=== PATIENT | male | born 1940 | race Caucasian/White ===

== ENCOUNTER 2022-10-10 16:31 | Inpatient (IN) | payer MEDICARE, MEDICAID ==
[2022-10-10] MEDS ORDERED: HYDROmorphone 1 MG/ML Syringe IVPUSH STA (17:45)
[2022-10-10] MEDS ORDERED: Ondansetron 4 MG/2 ML SDV IVPUSH ONE (17:45)
[2022-10-10] MEDS ORDERED: Lidocaine 1% 2 ML ONE (18:48)
[2022-10-10] MEDS ORDERED: Iopamidol 612 MG/ML 100 ML Bottle IVPUSH ONE (18:53)
[2022-10-10] MEDS ORDERED: Sodium Chloride 0.9% 10 ML SDV FLUSH ONE (18:53)
[2022-10-10 19:03] LABS: ESTIMATED GFR 86 mL/min (>60)
[2022-10-10] MEDS ORDERED: Metoclopramide 10 MG/2 ML SDV IVPUSH STA (19:51)
[2022-10-10] MEDS: Sodium Chloride 0.9% 1,000 ML IV SCH (20:03)
[2022-10-10] MEDS ORDERED: Ondansetron 4 MG/2 ML SDV ONE ×2 (21:29→21:51)
[2022-10-10] MEDS ORDERED: Ondansetron 8 MG in Sodium Chloride 0.9% 50 ML IV ONE (21:33)
[2022-10-11] MEDS ORDERED: Ondansetron 4 MG/2 ML SDV IVPUSH PRN (00:38)
[2022-10-11] MEDS: Morphine 2 MG/ML SYRINGE IVPUSH PRN (04:46)
[2022-10-11] MEDS: Sodium Chloride 0.9% 1,000 ML IV SCH ×2 (04:46→15:53)
[2022-10-11] MEDS ORDERED: Calcium Carbonate 500 MG Tab.Chew PO PRN ×2 (06:45→09:45)
[2022-10-11] MEDS ORDERED: Levothyroxine 100 MCG Tab PO SCH (07:00)
[2022-10-11] MEDS ORDERED: Divalproex Sodium Delayed-Release 125 MG Cap.Sprink PO SCH (09:00)
[2022-10-11] MEDS ORDERED: Folic Acid 1 MG Tab PO SCH (09:00)
[2022-10-11] MEDS ORDERED: Divalproex Sodium Delayed-Release 500 MG Tab.CR PO SCH (09:12)
[2022-10-11] MEDS: Furosemide 20 MG Tab PO SCH (09:34)
[2022-10-11] MEDS: Bisacodyl 5 MG Tab PO SCH (09:34)
[2022-10-11] MEDS: Divalproex Sodium Delayed-Release 500 MG Tab.CR PO SCH ×2 (09:34→20:16)
[2022-10-11] MEDS: Famotidine 20 MG Tab PO SCH ×2 (09:35→20:15)
[2022-10-11] MEDS: Potassium Chloride 20 MEQ Tab.ER PO SCH ×3 (09:35→20:16)
[2022-10-11] MEDS: Folic Acid 1 MG Tab PO SCH (09:35)
[2022-10-11] MEDS: Mirtazapine 15 MG Tab PO SCH (09:35)
[2022-10-11] MEDS: Heparin Sodium 5,000 Units/ML Vial SUBCUT SCH ×2 (15:24→21:13)
[2022-10-12] MEDS: Sodium Chloride 0.9% 1,000 ML IV SCH ×2 (00:01→14:15)
[2022-10-12] MEDS: Morphine 2 MG/ML SYRINGE IVPUSH PRN ×2 (00:01→04:15)
[2022-10-12] MEDS: Heparin Sodium 5,000 Units/ML Vial SUBCUT SCH ×3 (06:14→21:00)
[2022-10-12] MEDS: Levothyroxine 50 MCG Tab PO SCH (06:14)
[2022-10-12] MEDS: Bisacodyl 5 MG Tab PO SCH (08:32)
[2022-10-12] MEDS: Furosemide 20 MG Tab PO SCH (08:33)
[2022-10-12] MEDS: Folic Acid 1 MG Tab PO SCH (08:33)
[2022-10-12] MEDS: Famotidine 20 MG Tab PO SCH ×2 (08:33→20:57)
[2022-10-12] MEDS: Potassium Chloride 20 MEQ Tab.ER PO SCH ×3 (08:33→20:57)
[2022-10-12] MEDS: Mirtazapine 15 MG Tab PO SCH (08:33)
[2022-10-12] MEDS: Divalproex Sodium Delayed-Release 500 MG Tab.CR PO SCH ×2 (08:33→20:57)
[2022-10-12] MEDS ORDERED: Folic Acid 1 MG Tab PO SCH (09:00)
[2022-10-13] MEDS: Sodium Chloride 0.9% 1,000 ML IV SCH (02:41)
[2022-10-13] MEDS: Levothyroxine 50 MCG Tab PO SCH (06:34)
[2022-10-13] MEDS: Heparin Sodium 5,000 Units/ML Vial SUBCUT SCH ×3 (06:34→22:10)
[2022-10-13] MEDS: Mirtazapine 15 MG Tab PO SCH (09:09)
[2022-10-13] MEDS: Potassium Chloride 20 MEQ Tab.ER PO SCH ×3 (09:09→20:10)
[2022-10-13] MEDS: Divalproex Sodium Delayed-Release 500 MG Tab.CR PO SCH ×2 (09:09→20:09)
[2022-10-13] MEDS: Bisacodyl 5 MG Tab PO SCH (09:09)
[2022-10-13] MEDS: Furosemide 20 MG Tab PO SCH (09:09)
[2022-10-13] MEDS: Famotidine 20 MG Tab PO SCH ×2 (09:10→20:09)
[2022-10-13] MEDS: Folic Acid 1 MG Tab PO SCH (09:10)
[2022-10-13] MEDS ORDERED: Sodium Chloride 0.9% 1,000 ML IV SCH (10:30)
[2022-10-13] MEDS: Potassium Chloride 10 MEQ in Premix Bag 1 BAG IV SCH ×3 (11:26→14:50)
[2022-10-13] MEDS ORDERED: Magnesium Sulfate/Water 2 GM in Premix Bag 1 BAG IV ONE (14:00)
[2022-10-13] MEDS ORDERED: Potassium Chloride 20 MEQ Tab.ER PO ONE (14:30)
[2022-10-13] MEDS ORDERED: Potassium Phosphates 30 MMOLE in Sodium Chloride 0.9% 500 ML IV SCH (16:00)
[2022-10-13] MEDS ORDERED: Potassium Chloride 20 MEQ Tab.ER PO SCH (21:00)
[2022-10-14] MEDS: Heparin Sodium 5,000 Units/ML Vial SUBCUT SCH ×3 (06:06→21:08)
[2022-10-14] MEDS ORDERED: Levothyroxine 100 MCG Tab PO SCH (07:00)
[2022-10-14] MEDS ORDERED: Potassium Chloride 20 MEQ Tab.ER PO SCH (09:00)
[2022-10-14] MEDS ORDERED: Lactated Ringers 1,000 ML IV SCH (09:00)
[2022-10-14] MEDS ORDERED: Magnesium Sulfate/Water 2 GM in Premix Bag 1 BAG IV ONE (09:00)
[2022-10-14] MEDS: Potassium Chloride 10 MEQ in Premix Bag 1 BAG IV SCH ×6 (09:09→15:57)
[2022-10-14] MEDS: Folic Acid 1 MG Tab PO SCH (09:17)
[2022-10-14] MEDS: Furosemide 20 MG Tab PO SCH (09:17)
[2022-10-14] MEDS: Bisacodyl 5 MG Tab PO SCH (09:17)
[2022-10-14] MEDS: Mirtazapine 15 MG Tab PO SCH (09:17)
[2022-10-14] MEDS: Famotidine 20 MG Tab PO SCH (09:18)
[2022-10-14] MEDS: Divalproex Sodium Delayed-Release 500 MG Tab.CR PO SCH ×2 (09:39→21:07)
[2022-10-14] MEDS ORDERED: Lidocaine 2% Viscous Solution 15 ML UD PO PRN (10:58)
[2022-10-14] MEDS ORDERED: Lidocaine 2% Viscous Solution 15 ML UD PO SCH (11:00)
[2022-10-14] MEDS ORDERED: Benzocaine 20% Topical Spray UD MUCMEM PRN (12:08)
[2022-10-14] MEDS ORDERED: Pantoprazole 40 MG Vial IVPUSH ONE (12:30)
[2022-10-14] MEDS ORDERED: Potassium Phosphates 30 MMOLE in Sodium Chloride 0.9% 500 ML IV ONE (15:30)
[2022-10-14] MEDS: D5 1/2 NS w/ 20 mEq/L KCl 1,000 ML IV SCH (15:52)
[2022-10-14] MEDS: Pantoprazole 40 MG Vial IVPUSH SCH (21:07)
[2022-10-15] MEDS: Heparin Sodium 5,000 Units/ML Vial SUBCUT SCH ×3 (07:03→23:53)
[2022-10-15] MEDS: Mirtazapine 15 MG Tab PO SCH (08:47)
[2022-10-15] MEDS: Divalproex Sodium Delayed-Release 500 MG Tab.CR PO SCH (08:47)
[2022-10-15] MEDS: Pantoprazole 40 MG Vial IVPUSH SCH ×2 (08:47→20:41)
[2022-10-15] MEDS: D5 1/2 NS w/ 20 mEq/L KCl 1,000 ML IV SCH (08:48)
[2022-10-15] MEDS: Morphine 2 MG/ML SYRINGE IVPUSH PRN ×2 (08:53→11:39)
[2022-10-15] MEDS: Potassium Chloride 10 MEQ in Premix Bag 1 BAG IV SCH ×8 (10:48→23:54)
[2022-10-15] MEDS: Scopolamine 1.5 MG Transdermal Patch TRDERM SCH (12:06)
[2022-10-15] MEDS ORDERED: Albuterol 0.083% 2.5 MG/3 ML Neb Soln NEB PRN (15:53)
[2022-10-15] MEDS ORDERED: Potassium Phosphates 30 MMOLE in Sodium Chloride 0.9% 500 ML IV ONE ×2 (16:00→18:00)
[2022-10-15] MEDS: Albuterol 0.083% 2.5 MG/3 ML Neb Soln NEB SCH ×2 (16:15→21:09)
[2022-10-15] MEDS: Cefepime 2 GM in Sodium Chloride 0.9% 50 ML IV SCH (16:31)
[2022-10-15] MEDS: Levofloxacin/Dextrose 5%-Water 750 MG in Premix Bag 1 BAG IV SCH (16:32)
[2022-10-15] MEDS ORDERED: Furosemide 20 MG/2 ML VIAL IVPUSH ONE (17:17)
[2022-10-16] MEDS: Cefepime 2 GM in Sodium Chloride 0.9% 50 ML IV SCH ×3 (01:17→17:16)
[2022-10-16] MEDS: D5 1/2 NS w/ 20 mEq/L KCl 1,000 ML IV SCH (01:18)
[2022-10-16] MEDS: Albuterol 0.083% 2.5 MG/3 ML Neb Soln NEB SCH ×4 (06:33→20:12)
[2022-10-16] MEDS: Heparin Sodium 5,000 Units/ML Vial SUBCUT SCH ×3 (07:01→21:45)
[2022-10-16] MEDS: Pantoprazole 40 MG Vial IVPUSH SCH ×2 (08:15→20:38)
[2022-10-16] MEDS ORDERED: Furosemide 20 MG/2 ML VIAL IVPUSH ONE (10:15)
[2022-10-16] MEDS ORDERED: Magnesium Sulfate/Water 50 ML IV ONE (10:30)
[2022-10-16] MEDS: Morphine 2 MG/ML SYRINGE IVPUSH PRN (10:46)
[2022-10-16] MEDS: Potassium Chloride 10 MEQ in Premix Bag 1 BAG IV SCH ×4 (10:50→17:27)
[2022-10-16] MEDS ORDERED: Magnesium Sulfate (4.06 MEQ/ML) 5 GM/10 ML SDV IV ONE (11:00)
[2022-10-16] MEDS ORDERED: Potassium Phosphates 30 MMOLE in Sodium Chloride 0.9% 500 ML IV ONE (15:00)
[2022-10-16] MEDS: Levofloxacin/Dextrose 5%-Water 750 MG in Premix Bag 1 BAG IV SCH (15:59)
[2022-10-16] MEDS ORDERED: Potassium Chloride 10 MEQ in Premix Bag 1 BAG IV SCH (17:15)
[2022-10-17] MEDS: Cefepime 2 GM in Sodium Chloride 0.9% 50 ML IV SCH ×2 (02:21→08:14)
[2022-10-17] MEDS: D5 1/2 NS w/ 20 mEq/L KCl 1,000 ML IV SCH (02:23)
[2022-10-17] MEDS: Morphine 2 MG/ML SYRINGE IVPUSH PRN (02:24)
[2022-10-17] MEDS: Heparin Sodium 5,000 Units/ML Vial SUBCUT SCH ×2 (06:09→15:37)
[2022-10-17] MEDS: Albuterol 0.083% 2.5 MG/3 ML Neb Soln NEB SCH ×4 (06:27→20:47)
[2022-10-17] MEDS: Pantoprazole 40 MG Vial IVPUSH SCH (08:11)
[2022-10-17] MEDS: Potassium Chloride 10 MEQ in Premix Bag 1 BAG IV SCH ×4 (09:09→14:19)
[2022-10-17] MEDS ORDERED: Potassium Phosphates 30 MMOLE in Sodium Chloride 0.9% 500 ML IV ONE (13:00)
[2022-10-17] MEDS: Glycopyrrolate 0.2 MG/ML SDV IVPUSH PRN (15:45)
[2022-10-17] MEDS: LORazepam 2 MG/ML SDV IVPUSH PRN (15:49)
[2022-10-18] MEDS: Glycopyrrolate 0.2 MG/ML SDV IVPUSH PRN ×2 (03:36→20:23)
[2022-10-18] MEDS: Albuterol 0.083% 2.5 MG/3 ML Neb Soln NEB SCH ×2 (05:45→09:27)
[2022-10-18] MEDS: LORazepam 2 MG/ML SDV IVPUSH PRN (10:26)
[2022-10-18] MEDS: Morphine 2 MG/ML SYRINGE IVPUSH PRN (10:27)
[2022-10-18] MEDS: Scopolamine 1.5 MG Transdermal Patch TRDERM SCH (12:20)
[2022-10-18] MEDS: Morphine 4 MG/ML Syringe IVPUSH PRN (20:22)
[2022-10-19] MEDS: Morphine 4 MG/ML Syringe IVPUSH PRN ×4 (00:12→07:27)
[2022-10-19] MEDS: Glycopyrrolate 0.2 MG/ML SDV IVPUSH PRN (02:52)
[2022-10-19] MEDS: LORazepam 2 MG/ML SDV IVPUSH PRN (05:36)
== END 2022-10-19 11:44 | disposition expired | DRG 388 ==
LOC: JD.ED 16:31 → JD.MS 22:30
PROVIDERS: ADMIT Internal Medicine; ATTEND Internal Medicine
PROC: 05HY33Z Insertion of Infusion Device into Upper Vein, Percutaneous Approach (ICD-10-PCS; 2022-10-10)
PROC: 0DH67UZ Insertion of Feeding Device into Stomach, Via Natural or Artificial Opening (ICD-10-PCS; principal; 2022-10-14)
DX: K56.0 Paralytic ileus (principal); J69.0 Pneumonitis due to inhalation of food and vomit; J96.01 Acute respiratory failure with hypoxia; F02.A18 Dementia in other diseases classified elsewhere, mild, with other behavioral disturbance; I50.42 Chronic combined systolic (congestive) and diastolic (congestive) heart failure; J98.11 Atelectasis; Z66 Do not resuscitate; Z51.5 Encounter for palliative care; G30.9 Alzheimer's disease, unspecified; G25.81 Restless legs syndrome; J44.9 Chronic obstructive pulmonary disease, unspecified; F31.9 Bipolar disorder, unspecified; K21.9 Gastro-esophageal reflux disease without esophagitis; K59.81 Ogilvie syndrome; E03.9 Hypothyroidism, unspecified; E66.09 Other obesity due to excess calories; R73.9 Hyperglycemia, unspecified; E53.8 Deficiency of other specified B group vitamins; E87.6 Hypokalemia; E83.39 Other disorders of phosphorus metabolism; E83.42 Hypomagnesemia; R68.89 Other general symptoms and signs; I11.0 Hypertensive heart disease with heart failure; Z68.31 Body mass index [BMI] 31.0-31.9, adult; Z90.89 Acquired absence of other organs; Z79.899 Other long term (current) drug therapy
CPT/HCPCS: 31720; 36410; 36415; 71045; 71045-26; 74019; 74019-26; 74176; 74176-26; 74177; 74177-26; 80048; 80053; 81001; 82947; 83605; 83690; 83735; 83880; 84100; 84443; 85007; 85025; 85027; 87493; 87641; 94640; 94760; 94761; 94762; 96361; 96365; 96375; 96376; 97162-GP; 97166-GO; 97530-GO; 97530-GP; 99222; 99231; 99232; 99238; 99284; 99285-25; A9270-GY; C9113; J0692; J1170; J1644; J1940; J1956; J2060; J2270; J2405; J2765; J3475; J3480; J3490; J7030; J7040; J7120; J7620-GY; Q9967